=== PATIENT | male | born 1960 | race Caucasian/White ===

== ENCOUNTER → 2017-11-25 | Outpatient (CLI) | payer OTHER ==
--- NOTE | 2017-11-25 07:42 | US ---
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 EXAM MEASUREMENTS: Liver Length: 17.4 cm Gallbladder Wall: 0.3 cm CBD: 0.4 cm Right Kidney: 11.5 x 5.7 x 4.2 cm Pancreas: Heterogeneous Liver: wnl Gallbladder: Contracted due to NPO state Evidence for sonographic Culver's sign: no CBD: wnl Right Kidney: wnl IMPRESSION: No worrisome intrahepatic mass or intrahepatic ductal dilatation is seen.
[2017-11-25 10:21] LABS: Basophils % (A) 1 %; Eosinophils # (A) 0.2 k/uL (0-0.7); Eosinophils % (A) 2 %; HCT 44.4 % (39.0-53.0); HGB 14.5 gm/dL (13.0-17.5); Lymphocytes # (A) 2.9 k/uL (1.0-4.8); Lymphocytes % (A) 38 %; MCH 32.5 pg (25.0-35.0); MCHC 32.5 g/dL (31.0-37.0); MCV 100.1 fL (80.0-100.0); Mean Platelet Volume 8.5; Monocytes # (A) 0.5 k/uL (0-1.0); Monocytes % (A) 6 %; Neutrophils # (A) 3.8 k/uL (1.3-7.7); Neutrophils % (A) 51 %; Platelet Count 254 k/uL (150-450); RBC 4.44 m/uL (4.30-5.90); RDW 12.7 % (11.5-15.5); WBC 7.5 k/uL (3.8-10.6)
[2017-11-25 18:01] LABS: Hepatitis A Antibody IgM Non-Reactive (Non-Reactive); Hepatitis B Core IgM Non-Reactive (Non-Reactive)
== END | disposition home or self-care (01) ==
LOC: RADUSWWP 06:53
PROVIDERS: ATTEND Internal Medicine Gastroenterology
DX: B18.2 Chronic viral hepatitis C (principal)
CPT/HCPCS: 76705; 80074; 85025; 87522

== ENCOUNTER 2017-12-08 19:48 | Emergency (ER) | payer OTHER ==
[2017-12-08] MEDS ORDERED: SODIUM CHLORIDE 0.9% 1,000 ML IV STA (19:55)
[2017-12-08 19:57] VITALS: BP 187/86; PULSE 75; RESP 16; TEMP 98.2
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
[2017-12-08 20:05] LABS: Glucose,Whole Blood 105 mg/dL (75-99)
[2017-12-08 20:18] LABS: Basophils # (A) 0.1 k/uL (0-0.2); Basophils % (A) 1 %; Eosinophils # (A) 0.2 k/uL (0-0.7); Eosinophils % (A) 2 %; HGB 14.7 gm/dL (13.0-17.5); Lymphocytes # (A) 4.6 k/uL (1.0-4.8); Lymphocytes % (A) 46 %; MCH 32.5 pg (25.0-35.0); MCHC 33.4 g/dL (31.0-37.0); MCV 97.2 fL (80.0-100.0); Mean Platelet Volume 8.6; Monocytes # (A) 0.5 k/uL (0-1.0); Monocytes % (A) 5 %; Neutrophils # (A) 4.4 k/uL (1.3-7.7); Neutrophils % (A) 43 %; Platelet Count 255 k/uL (150-450); RBC 4.53 m/uL (4.30-5.90); RDW 12.8 % (11.5-15.5); WBC 10.1 k/uL (3.8-10.6)
--- NOTE | 2017-12-08 20:24 | XR ---
EXAMINATION TYPE: XR chest 1V portable DATE OF EXAM: 12/08/2017 COMPARISON: NONE HISTORY: Chest pain TECHNIQUE: Single frontal view of the chest is obtained. FINDINGS: Heart and mediastinum are normal. Lungs are clear. Diaphragm is normal. There is no sign o f pleural effusion or pneumothorax. IMPRESSION: Normal chest
--- NOTE | 2017-12-08 20:25 | XR ---
EXAMINATION TYPE: XR pelvis AP view DATE OF EXAM: 12/08/2017 COMPARISON: NONE HISTORY: Pain TECHNIQUE: Single view FINDINGS: Pelvic ring is intact. Proximal femurs and hip joints are intact. Sacroiliac joints appear normal. IMPRESSION: Normal pelvis
[2017-12-08 20:29] LABS: ALT 66 U/L (21-72); AST 68 U/L (17-59); Albumin 4.5 g/dL (3.5-5.0); Alkaline Phosphatase 32 U/L (38-126); Amylase 75 U/L (30-110); Anion Gap 11 mmol/L; Blood Urea Nitrogen 11 mg/dL (9-20); Calcium 9.7 mg/dL (8.4-10.2); Carbon Dioxide 25 mmol/L (22-30); Chloride 104 mmol/L (98-107); Glucose 100 mg/dL (74-99); Lipase 150 U/L (23-300); Potassium 4.3 mmol/L (3.5-5.1); Sodium 140 mmol/L (137-145); Total Bilirubin 0.6 mg/dL (0.2-1.3); Total Protein 7.3 g/dL (6.3-8.2)
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
[2017-12-08 20:31] LABS: Alcohol 115 mg/dL; Partial Thromboplastin Time 22.5 sec (22.0-30.0); Prothrombin Time 10.2 sec (9.0-12.0)
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
[2017-12-08 20:50] LABS: Creatine Kinase 116 U/L (55-170)
[2017-12-08 21:02] LABS: Creatine Kinase MB 1.8 ng/mL (0.0-2.4); Troponin I <0.012 ng/mL (0.000-0.034)
[2017-12-08 22:52] LABS: Appearance,Urine Clear (Clear); Bilirubin,Urine Negative (Negative); Blood,Urine Negative (Negative); Color,Urine Colorless; Glucose,Urine (UA) Negative (Negative); Ketones,Urine Negative (Negative); Leukocyte Esterase,Urine Negative (Negative); Nitrite,Urine Negative (Negative); PH, Urine 5.5 (5.0-8.0); Protein,Urine Negative (Negative); Specific Gravity,Urine 1.012 (1.001-1.035); Urobilinogen,Urine <2.0 mg/dL (<2.0)
[2017-12-08 23:08] LABS: Amphetamine Screen,Urine Not Detected (NotDetected); Barbiturate Screen,Urine Not Detected (NotDetected); Benzodiazepines Screen,Urine Not Detected (NotDetected); Cocaine Screen,Urine Not Detected (NotDetected); Methadone Screen, Urine Not Detected (NotDetected); Opiate Screen,Urine Not Detected (NotDetected); Oxycodone Screen, Urine Detected (NotDetected); Phencyclidine Screen,Urine Not Detected (NotDetected); Tricyclic Antidepressant,Urine Not Detected (NotDetected); Urn Cannabinoid Scrn Detected (NotDetected)
== END 2017-12-08 23:53 | disposition home or self-care (01) ==
LOC: EC 19:48
DX: S61.511A Laceration without foreign body of right wrist, initial encounter (principal); F17.200 Nicotine dependence, unspecified, uncomplicated; Z79.82 Long term (current) use of aspirin; Z79.899 Other long term (current) drug therapy; V29.49XA Motorcycle driver injured in collision with other motor vehicles in traffic accident, initial encounter; Y92.524 Gas station as the place of occurrence of the external cause
CPT/HCPCS: 36415; 93005; 86900; 86901; 80053; 82150; 82550; 82553; 83605; 83690; 84484; 85025; 85610; 85730; 86850; 81003; 80306; 80320; 72170; 71045; 72125; 70450; 71260; 74177; 99285; 96360; 96361 ×3; Q9967

== ENCOUNTER → 2017-12-22 | Outpatient (CLI) | payer OTHER ==
[2017-12-22 10:42] LABS: INR 1.1 (<1.2); Prothrombin Time 10.4 sec (9.0-12.0)
[2017-12-22 10:55] LABS: ALT 57 U/L (21-72); AST 48 U/L (17-59); Albumin 4.3 g/dL (3.5-5.0); Alkaline Phosphatase 45 U/L (38-126); Anion Gap 9 mmol/L; Blood Urea Nitrogen 15 mg/dL (9-20); Calcium 9.8 mg/dL (8.4-10.2); Carbon Dioxide 27 mmol/L (22-30); Chloride 105 mmol/L (98-107); Glucose 98 mg/dL (74-99); Potassium 5.6 mmol/L (3.5-5.1); Sodium 141 mmol/L (137-145); Total Bilirubin 0.4 mg/dL (0.2-1.3); Total Protein 7.3 g/dL (6.3-8.2)
== END ==
LOC: LABWHC1 09:22
PROVIDERS: ATTEND Physician Assistant
DX: B18.2 Chronic viral hepatitis C (principal)
CPT/HCPCS: 36415; 80053; 85610

== ENCOUNTER → 2018-04-22 | Outpatient (CLI) | payer OTHER ==
[2018-04-22 18:09] LABS: Albumin 4.5 g/dL (3.80-4.90); Albumin/Globulin Ratio 2.14 (1.60-3.17); Bilirubin, Conjugated 0.2 mg/dL (0.20-0.40); Bilirubin,Unconjugated 0.5 mg/dL; Globulin 2.1 g/dL (1.6-3.3); Total Bilirubin 0.7 mg/dL (0.2-1.2); Total Protein 6.6 g/dL (6.2-8.2)
== END ==
LOC: LABWHC1 09:54
PROVIDERS: ATTEND Physician Assistant
DX: B18.2 Chronic viral hepatitis C (principal)
CPT/HCPCS: 36415; 80076; 87522

== ENCOUNTER → 2018-04-26 | Outpatient (CLI) | payer OTHER ==
--- NOTE | 2018-04-26 07:46 | US ---
EXAMINATION TYPE: US kidneys/renal and bladder DATE OF EXAM: 04/26/2018 COMPARISON: 11/25/2017 CLINICAL HISTORY: N28.1 CYST OF LT KIDNEY. No pain, cyst on left kidney per patient EXAM MEASUREMENTS: Right Kidney: 11.6 x 4.8 x 4.1 cm Left Kidney: 11.1 x 5.0 x 5.4 cm Right Kidney: Medial anechoic lesion at hilum - 1.9 x 1.2 cm Left Kidney: Medial mid cystic appearing lesion in cortical region - 3.4 x 3.7 x 3.2 cm Bladder: wnl Bilateral Jets seen There is no evidence for hydronephrosis at this point in time. No nephrolithiasis is seen. The urina ry bladder is anechoic. Bilateral ureteral jets are seen. IMPRESSION: Bilateral simple appearing renal cysts. No hydronephrosis or nephrolithiasis.
== END | disposition home or self-care (01) ==
LOC: RADUSWWP 07:02
PROVIDERS: ATTEND Family Medicine
DX: N28.1 Cyst of kidney, acquired (principal)
CPT/HCPCS: 76770

== ENCOUNTER → 2018-05-16 | Outpatient (CLI) | payer OTHER ==
[2018-05-16 12:02] LABS: Basophils % (A) 1 %; Eosinophils # (A) 0.1 k/uL (0-0.7); Eosinophils % (A) 1 %; HCT 45.8 % (39.0-53.0); HGB 15.1 gm/dL (13.0-17.5); Lymphocytes # (A) 2.8 k/uL (1.0-4.8); Lymphocytes % (A) 32 %; MCV 97.1 fL (80.0-100.0); Mean Platelet Volume 7.8; Monocytes # (A) 0.4 k/uL (0-1.0); Monocytes % (A) 5 %; Neutrophils # (A) 5.3 k/uL (1.3-7.7); Neutrophils % (A) 60 %; Platelet Count 263 k/uL (150-450); RBC 4.72 m/uL (4.30-5.90); WBC 8.8 k/uL (3.8-10.6)
== END ==
LOC: LABWHC1 11:01
PROVIDERS: ATTEND Physician Assistant
DX: B18.2 Chronic viral hepatitis C (principal)
CPT/HCPCS: 36415; 85025

== ENCOUNTER 2018-07-11 11:30 | Emergency (ER) | payer OTHER ==
--- NOTE | 2018-07-11 12:30 | XR ---
EXAMINATION TYPE: XR chest 2V DATE OF EXAM: 07/11/2018 COMPARISON: Chest x-ray and CT December 08, 2017. HISTORY: Weakness. Shortness of breath with exertion. Chest pain. TECHNIQUE: Frontal and lateral views of the chest are obtained. FINDINGS: Overlying EKG leads are present. There is chronic parenchymal change without suspicious fo aric air space opacity, pleural effusion, or pneumothorax seen. The cardiac silhouette size is within normal limits. The osseous structures are intact. IMPRESSION: No acute cardiopulmonary process. No significant change from prior studies.
--- NOTE | 2018-07-11 12:38 | ED ---
Weakness HPI - General Chief complaint: Weakness Stated complaint: SOB/dizziness Time Seen by Provider: 07/11/18 11:39 Source: patient Mode of arrival: wheelchair Limitations: no limitations - Related Data Home Medications Medication Instructions Recorded Confirmed Aspirin [Adult Low Dose Aspirin EC] 81 mg PO DAILY 12/08/17 07/11/18 Levothyroxine Sodium [Synthroid] 50 mcg PO DAILY 07/11/18 07/11/18 Allergies Allergy/AdvReac Type Severity Reaction Status Date / Time No Known Allergies Allergy Verified 07/11/18 11:50 Review of Systems ROS Statement: Those systems with pertinent positive or pertinent negative responses have been documented in the HPI. ROS Other: All systems not noted in ROS Statement are negative. Past Medical History Past Medical History: No Reported History History of Any Multi-Drug Resistant Organisms: None Reported Past Surgical History: No Surgical Hx Reported Past Psychological History: No Psychological Hx Reported Smoking Status: Former smoker Past Alcohol Use History: Daily Past Drug Use History: None Reported General Exam Limitations: no limitations Course Vital Signs 07/11/18 07/11/18 07/11/18 11:34 12:01 12:30 Temperature 98.3 F Pulse Rate 72 68 64 Pulse Rate [ 67 Assisted Living Executive Director ] Respiratory 16 15 16 Rate Blood Pressure 158/79 132/80 O2 Sat by Pulse 99 98 94 L Oximetry 07/11/18 07/11/18 07/11/18 13:00 13:30 14:23 Temperature Pulse Rate 62 73 64 Pulse Rate [ Assisted Living Executive Director ] Respiratory 16 12 18 Rate Blood Pressure 136/71 145/79 145/80 O2 Sat by Pulse 95 96 95 Oximetry EKG Findings - EKG Comments: EKG Findings:: EKG shows sinus rhythm rate of 61, MT 156, QRS 100, QTC 408 Medical Decision Making - Lab Data Result diagrams: 07/11/18 12:10 07/11/18 12:10 Lab Results 07/11/18 07/11/18 07/11/18 Range/Units 12:10 12:10 12:10 WBC 8.0 (3.8-10.6) k/uL RBC 4.66 (4.30-5.90) m/uL Hgb 14.8 (13.0-17.5) gm/dL Hct 44.5 (39.0-53.0) % MCV 95.5 (80.0-100.0) fL MCH 31.7 (25.0-35.0) pg MCHC 33.2 (31.0-37.0) g/dL RDW 14.5 (11.5-15.5) % Plt Count 257 (150-450) k/uL Neutrophils % 61 % Lymphocytes % 29 % Monocytes % 6 % Eosinophils % 1 % Basophils % 1 % Neutrophils # 4.9 (1.3-7.7) k/uL Lymphocytes # 2.4 (1.0-4.8) k/uL Monocytes # 0.5 (0-1.0) k/uL Eosinophils # 0.1 (0-0.7) k/uL Basophils # 0.0 (0-0.2) k/uL PT 9.9 (9.0-12.0) sec INR 0.9 (<1.2) APTT 24.9 (22.0-30.0) sec D-Dimer 0.25 (<0.60) mg/L FEU Sodium 137 (137-145) mmol/L Potassium 4.6 (3.5-5.1) mmol/L Chloride 105 (98-107) mmol/L Carbon Dioxide 22 (22-30) mmol/L Anion Gap 10 mmol/L BUN 16 (9-20) mg/dL Creatinine 0.83 (0.66-1.25) mg/dL Est GFR (CKD-EPI)AfAm >90 (>60 ml/min/1.73 sqM) Est GFR (CKD-EPI)NonAf >90 (>60 ml/min/1.73 sqM) Glucose 124 H (74-99) mg/dL Plasma Lactic Acid Jevon (0.7-2.0) mmol/L Calcium 9.6 (8.4-10.2) mg/dL Phosphorus 2.8 (2.5-4.5) mg/dL Magnesium 1.8 (1.6-2.3) mg/dL Total Bilirubin 0.8 (0.2-1.3) mg/dL AST 57 (17-59) U/L ALT 71 (21-72) U/L Alkaline Phosphatase 53 (38-126) U/L Troponin I (0.000-0.034) ng/mL NT-Pro-B Natriuret Pep pg/mL Total Protein 7.2 (6.3-8.2) g/dL Albumin 4.6 (3.5-5.0) g/dL 07/11/18 07/11/18 07/11/18 Range/Units 12:10 12:10 12:13 WBC (3.8-10.6) k/uL RBC (4.30-5.90) m/uL Hgb (13.0-17.5) gm/dL Hct (39.0-53.0) % MCV (80.0-100.0) fL MCH (25.0-35.0) pg MCHC (31.0-37.0) g/dL RDW (11.5-15.5) % Plt Count (150-450) k/uL Neutrophils % % Lymphocytes % % Monocytes % % Eosinophils % % Basophils % % Neutrophils # (1.3-7.7) k/uL Lymphocytes # (1.0-4.8) k/uL Monocytes # (0-1.0) k/uL Eosinophils # (0-0.7) k/uL Basophils # (0-0.2) k/uL PT (9.0-12.0) sec INR (<1.2) APTT (22.0-30.0) sec D-Dimer (<0.60) mg/L FEU Sodium (137-145) mmol/L Potassium (3.5-5.1) mmol/L Chloride (98-107) mmol/L Carbon Dioxide (22-30) mmol/L Anion Gap mmol/L BUN (9-20) mg/dL Creatinine (0.66-1.25) mg/dL Est GFR (CKD-EPI)AfAm (>60 ml/min/1.73 sqM) Est GFR (CKD-EPI)NonAf (>60 ml/min/1.73 sqM) Glucose (74-99) mg/dL Plasma Lactic Acid Jevon 0.8 (0.7-2.0) mmol/L Calcium (8.4-10.2) mg/dL Phosphorus (2.5-4.5) mg/dL Magnesium (1.6-2.3) mg/dL Total Bilirubin (0.2-1.3) mg/dL AST (17-59) U/L ALT (21-72) U/L Alkaline Phosphatase (38-126) U/L Troponin I <0.012 (0.000-0.034) ng/mL NT-Pro-B Natriuret Pep 58 pg/mL Total Protein (6.3-8.2) g/dL Albumin (3.5-5.0) g/dL Disposition Clinical Impression: Chest pain Disposition: Left Against Medical Advice Condition: Undetermined Is patient prescribed a controlled substance at d/c from ED?: No
[2018-07-11 12:43] LABS: Basophils % (A) 1 %; Eosinophils # (A) 0.1 k/uL (0-0.7); Eosinophils % (A) 1 %; HCT 44.5 % (39.0-53.0); HGB 14.8 gm/dL (13.0-17.5); Lymphocytes # (A) 2.4 k/uL (1.0-4.8); Lymphocytes % (A) 29 %; MCH 31.7 pg (25.0-35.0); MCHC 33.2 g/dL (31.0-37.0); MCV 95.5 fL (80.0-100.0); Mean Platelet Volume 9.3; Monocytes # (A) 0.5 k/uL (0-1.0); Monocytes % (A) 6 %; Neutrophils # (A) 4.9 k/uL (1.3-7.7); Neutrophils % (A) 61 %; Platelet Count 257 k/uL (150-450); RBC 4.66 m/uL (4.30-5.90); RDW 14.5 % (11.5-15.5)
[2018-07-11 12:48] LABS: ALT 71 U/L (21-72); AST 57 U/L (17-59); Albumin 4.6 g/dL (3.5-5.0); Alkaline Phosphatase 53 U/L (38-126); Anion Gap 10 mmol/L; Blood Urea Nitrogen 16 mg/dL (9-20); Calcium 9.6 mg/dL (8.4-10.2); Carbon Dioxide 22 mmol/L (22-30); Chloride 105 mmol/L (98-107); Glucose 124 mg/dL (74-99); Magnesium 1.8 mg/dL (1.6-2.3); Phosphorus 2.8 mg/dL (2.5-4.5); Potassium 4.6 mmol/L (3.5-5.1); Sodium 137 mmol/L (137-145); Total Bilirubin 0.8 mg/dL (0.2-1.3); Total Protein 7.2 g/dL (6.3-8.2)
[2018-07-11 12:52] LABS: D-Dimer 0.25 mg/L FEU (<0.60); INR 0.9 (<1.2); Partial Thromboplastin Time 24.9 sec (22.0-30.0); Prothrombin Time 9.9 sec (9.0-12.0)
[2018-07-11 14:24] VITALS: RESP 18
[2018-07-11] MEDS ORDERED: HEPARIN SODIUM,PORCINE 5,000 UNIT/ML 1 ML VIAL IV PRN (14:33)
[2018-07-11] MEDS ORDERED: HEPARIN SODIUM,PORCINE 5,000 UNIT/ML 1 ML VIAL IV ONE (14:33)
[2018-07-11] MEDS ORDERED: NITROGLYCERIN SL TABS 0.4 MG TAB SUBLINGUAL PRN (14:33)
[2018-07-11] MEDS ORDERED: HEPARIN SOD,PORK IN 0.45% NACL 25,000 UNIT in 0.45% NACL 1 250ML.BAG IV SCH (14:45)
--- NOTE | 2018-07-11 15:01 | CT ---
EXAMINATION TYPE: CT angio chest DATE OF EXAM: 07/11/2018 COMPARISON: CT cannot December 08, 2017 HISTORY: Shortness of breath CT DLP: 336.9 mGycm. Automated Exposure Control for Dose Reduction was Utilized. CONTRAST: CTA scan of the thorax is performed with IV Contrast, patient injected with 100 mL of Isovue 370, pul monary embolism protocol. MIP Images are created on CT scanner and reviewed. FINDINGS: LUNGS: Some respiratory motion artifact degradation is present towards the bases. Lungs are grossly c lear. Mild linear scarring posterior lower lungs is present. No suspicious consolidation. No concerni ng nodules or masses There is no pleural effusion or pneumothorax seen. The tracheobronchial tree is patent. MEDIASTINUM: There is suboptimal bolus with more dense contrast in left heart system versus right hea rt system and heterogeneity but no CT evidence for central pulmonary embolism. Smaller segmental and subsegmental PE is not entirely excluded on this exam. There are no greater than 1 cm hilar or media stinal lymph nodes. No cardiomegaly or pericardial effusion is seen. OTHER: There is simple appearing 3.1 cm cyst laterally in the lower pole of the left kidney axial [id number]. [id number] multilevel spurring in thoracic spine is present. IMPRESSION: 1. Suboptimal study without central pulmonary embolism. Smaller segmental and subsegmental PE is not entirely excluded on this study. 2. No suspicious acute pulmonary process.
[2018-07-11 15:55] VITALS: BP 150/83; PULSE 64; TEMP 98.9
[2018-07-12] MEDS ORDERED: ASPIRIN 325 MG TAB PO SCH (09:00)
[2018-07-12] MEDS ORDERED: ATORVASTATIN 80 MG TAB PO SCH (09:00)
== END 2018-07-11 16:04 | disposition home or self-care (01) ==
LOC: EC 11:30 → UNDOADMOB 14:33 → 1SOBS 14:33 → EC 16:04
DX: R07.9 Chest pain, unspecified (principal); R53.1 Weakness; R06.02 Shortness of breath; R42 Dizziness and giddiness; Z53.20 Procedure and treatment not carried out because of patient's decision for unspecified reasons; Z87.891 Personal history of nicotine dependence; Z79.82 Long term (current) use of aspirin; Z79.890 Hormone replacement therapy
CPT/HCPCS: 36415; 93005; 85379; 83880; 80053; 83605; 83735; 84100; 84484; 85025; 85610; 85730; 71046; 71275; 99285; Q9967

== ENCOUNTER 2019-02-06 10:48 | Emergency (ER) | payer OTHER ==
[2019-02-06 11:03] VITALS: PULSE 78; RESP 18; TEMP 97.8
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
[2019-02-06 12:37] VITALS: BP 135/87
== END 2019-02-06 12:37 | disposition home or self-care (01) ==
LOC: EC 10:48
DX: S00.31XA Abrasion of nose, initial encounter (principal); S00.511A Abrasion of lip, initial encounter; I10 Essential (primary) hypertension; E07.9 Disorder of thyroid, unspecified; Z79.82 Long term (current) use of aspirin; Z79.890 Hormone replacement therapy; Z87.891 Personal history of nicotine dependence; V47.5XXA Car driver injured in collision with fixed or stationary object in traffic accident, initial encounter; Y92.410 Unspecified street and highway as the place of occurrence of the external cause
CPT/HCPCS: 70450; 72125; 99284

== ENCOUNTER → 2019-02-23 | Outpatient (CLI) | payer OTHER ==
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
== END | disposition home or self-care (01) ==
LOC: NEUROMAIN 08:54
PROVIDERS: ATTEND Family Medicine
DX: S09.90XA Unspecified injury of head, initial encounter (principal)
CPT/HCPCS: 95816

== ENCOUNTER → 2019-03-21 | Outpatient (CLI) | payer OTHER | END | disposition home or self-care (01) | LOC: LABWHC1 11:09 | PROVIDERS: ATTEND Psychiatry & Neurology Neurology | DX: C79.31 Secondary malignant neoplasm of brain (principal) | CPT/HCPCS: 36415; 80177 ==

== ENCOUNTER → 2019-03-21 | Outpatient (CLI) | payer OTHER ==
--- NOTE | 2019-03-21 14:23 | CT ---
EXAMINATION TYPE: CT abdomen pelvis w con DATE OF EXAM: 03/21/2019 COMPARISON: 12/08/2017 HISTORY: Shortness of breath. Brain cancer. CT DLP: 677.9 mGycm CONTRAST: CT scan of the abdomen and pelvis is performed with Oral Contrast and with IV Contrast, patient injec triston with 100 mL of Isovue M300. FINDINGS: LUNG BASES-: No visible nodule. No infiltrate. LIVER/GB: No calcified gallstones. No space occupying hepatic lesion. Biliary tree is of normal ca liber. PANCREAS: No inflammation. No distinct mass. SPLEEN: No splenic enlargement. No lesion seen. ADRENALS: No nodule. No thickening. KIDNEYS/BLADDER: No hydronephrosis. No nephrolithiasis. Stable cyst left kidney. Urinary bladder gr ossly unremarkable. BOWEL: Normal appendix. Normal bowel caliber. No inflammation. GENITAL ORGANS: No gross abnormality. LYMPH NODES: No greater than 1cm abdominal or pelvic lymph nodes are appreciated. AORTA: No significant abnormality. OSSEOUS STRUCTURES: No significant abnormality is seen. OTHER: No significant additional abnormality is seen. IMPRESSION: 1. No significant abnormality appreciated.
--- NOTE | 2019-03-21 14:25 | CT ---
EXAMINATION TYPE: CT chest wo con DATE OF EXAM: 03/21/2019 COMPARISON: 07/11/2018 HISTORY: Shortness of breath. Brain cancer. CT DLP: 334.[address] of the chest was performed with lung and mediastinal window settings submitted. The la ck of contrast limits evaluation of the vascular, mediastinal and parenchymal structures including th e upper abdomen. LUNGS: The lungs are clear and free of infiltrate. No atelectasis. No pulmonary nodule or mass is de tected. No pleural effusion. No CT evidence of interstitial lung disease. MEDIASTINUM/YELITZA: Thoracic aorta is of normal caliber with limited evaluation given lack of contrast . The heart is not enlarged. No evidence for mediastinal mass. No lymph nodes greater than 1cm. UPPER ABDOMEN: No significant abnormality is seen. OTHER: No significant other abnormality. IMPRESSION: 1. No abnormality of the chest at this time.
== END | disposition home or self-care (01) ==
LOC: RADCTMAIN 11:53
PROVIDERS: ATTEND Family Medicine
DX: R10.84 Generalized abdominal pain (principal); C71.9 Malignant neoplasm of brain, unspecified; B19.20 Unspecified viral hepatitis C without hepatic coma
CPT/HCPCS: 71250; 74177; Q9967 ×2

== ENCOUNTER → 2019-03-22 | Outpatient (CLI) | payer OTHER ==
--- NOTE | 2019-03-22 15:49 | NM ---
EXAMINATION TYPE: NM bone scan whole body DATE OF EXAM: 03/22/2019 COMPARISON: NONE HISTORY: Brain cancer, joint pain Delayed whole-body scanning was performed following the injection of 23.2 mCi Tc 99m MDP. Images acq uired 3.25 hours post injection. FINDINGS: Uptake within the left posterior neck is likely due to facet arthropathy. Uptake within the shoulders , wrists, hands, feet, sternoclavicular joints is likely due to underlying arthropathy. Soft tissue u ptake is normal. No abnormal increased or decreased uptake to suggest metastatic disease is evident. IMPRESSION: Facet arthropathy noted in the neck. Degenerative changes are favored.
== END | disposition home or self-care (01) ==
LOC: RADNMMAIN 10:29
PROVIDERS: ATTEND Family Medicine
DX: M12.88 Other specific arthropathies, not elsewhere classified, other specified site (principal); M25.50 Pain in unspecified joint
CPT/HCPCS: 78306

== ENCOUNTER → 2019-04-17 | Outpatient (CLI) | payer OTHER ==
[2019-04-17 12:46] LABS: Partial Thromboplastin Time 24.7 sec (22.0-30.0)
[2019-04-17 13:02] LABS: Basophils # (A) 0.2 k/uL (0-0.2); Basophils % (A) 2 %; Eosinophils # (A) 0.1 k/uL (0-0.7); Eosinophils % (A) 1 %; HCT 47.3 % (39.0-53.0); HGB 15.9 gm/dL (13.0-17.5); Lymphocytes # (A) 2.7 k/uL (1.0-4.8); Lymphocytes % (A) 29 %; MCH 32.9 pg (25.0-35.0); MCHC 33.6 g/dL (31.0-37.0); MCV 97.9 fL (80.0-100.0); Mean Platelet Volume 9.8; Monocytes # (A) 0.5 k/uL (0-1.0); Monocytes % (A) 6 %; Neutrophils # (A) 5.6 k/uL (1.3-7.7); Neutrophils % (A) 59 %; Platelet Count 296 k/uL (150-450); RBC 4.83 m/uL (4.30-5.90); RDW 12.5 % (11.5-15.5); WBC 9.4 k/uL (3.8-10.6)
[2019-04-17 15:08] LABS: Appearance,Urine Clear (Clear); Bilirubin,Urine Negative (Negative); Blood,Urine Negative (Negative); Color,Urine Light Yellow; Glucose,Urine (UA) Negative (Negative); Ketones,Urine Negative (Negative); Leukocyte Esterase,Urine Negative (Negative); Nitrite,Urine Negative (Negative); Protein,Urine Negative (Negative); Specific Gravity,Urine 1.003 (1.001-1.035); Urobilinogen,Urine <2.0 mg/dL (<2.0)
[2019-04-17 22:25] LABS: African American GFR (CKD) 94.4 (60.0-200.0); Albumin 4.9 g/dL (3.80-4.90); Albumin/Globulin Ratio 2.45 (1.60-3.17); Anion Gap 10.8 mmol/L (4.00-12.00); Calcium 9.8 mg/dL (8.7-10.3); Carbon Dioxide 26.2 mmol/L (21.6-31.8); Non-African American GFR(CKD) 81.4 (60.0-200.0); Potassium 4.6 mmol/L (3.5-5.5); Total Bilirubin 0.5 mg/dL (0.2-1.2); Total Protein 6.9 g/dL (6.2-8.2)
== END | disposition home or self-care (01) ==
LOC: LABWHC1 11:31
PROVIDERS: ATTEND Neurological Surgery
DX: Z01.812 Encounter for preprocedural laboratory examination (principal)
CPT/HCPCS: 36415; 80053; 81003; 85025; 85610; 85730; 87070